=== PATIENT | female | born 1945 | race Caucasian/White ===

== ENCOUNTER 2017-10-07 10:16 | Day surgery (SDC) | payer OTHER ==
[2017-10-05 09:14] VITALS: BMI 31.6
[2017-10-07] MEDS ORDERED: MIDAZOLAM HCL 2 MG/2 ML SINGLE DOSE VIAL ONE ×2 (13:10→13:30)
[2017-10-07] MEDS ORDERED: DEXAMETHASONE SOD PHOSPHATE 4 MG/1 ML VIAL ONE (13:29)
[2017-10-07] MEDS ORDERED: ONDANSETRON 4 MG/2 ML VIAL ONE (13:29)
[2017-10-07] MEDS ORDERED: ceFAZolin SODIUM 1 GM VIAL ONE (13:29)
[2017-10-07] MEDS ORDERED: oxyCODONE HCL 5 MG TABLET PO PRN (14:21)
[2017-10-07] MEDS ORDERED: ONDANSETRON 4 MG/2 ML VIAL IVPUSH PRN (14:21)
[2017-10-07] MEDS ORDERED: LACTATED RINGERS SOLUTION 1,000 ML IV SCH (14:30)
--- NOTE | 2017-10-07 14:38 | OP ---
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
[2017-10-07] MEDS ORDERED: oxyCODONE HCL 5 MG TABLET ONE (15:49)
[2017-10-07 17:22] VITALS: BP 110/67; PULSE 70; TEMP 97.9
--- NOTE | 2017-10-07 22:53 | OP ---
DATE OF OPERATION: SURGEON: Juan Luis Boucher M.D. CARGO BRACER: Gonzales Boucher M.D. PREOPERATIVE DIAGNOSIS: Encysted hematoma right subfascial thigh, measurement approximately 5 cm. POSTOPERATIVE DIAGNOSIS: Encysted hematoma right subfascial thigh, measurement approximately 5 cm. Two lesions found. OPERATIVE PERFORMED: Excision biopsy of 2 small subfascial tumors. ANESTHESIA: Conscious sedation with spinal anesthesia. DESCRIPTION OF PROCEDURE: Patient was identified, brought in operating room. Right lower extremity was prepped and draped in the routine manner. Betadine scrub solution, wiped with alcohol, DuraPrep applied. Patient was placed in lateral decubitus position. The wound was opened through the old lateral incision. Fascia sharply from the underlying soft tissues because of previous surgery. Two firm hard lesions readily identified and wide resection of these was performed, with a cuff of tissue right around these to be viewed as excisional biopsies. The wounds were thoroughly lavaged. Hemostasis was achieved. Closure fascia 1 Vicryl, subcutaneous 1 and 2-0 Vicryl, skin 3-0 Monocryl with Steri-Strips. No complications. MD PAUL Torres/[id number] MTDD
--- NOTE | 2017-10-12 12:45 | PATH ---
Surgical Pathology Report Patient Name: THAO KIRBY [facility]. Rec. #: [id number] /Age/Gender: 1945 (Age: 71) / F Account: [id number] Location: [facility] AM[facility]UL[facility] Taken: 10/07/2017 Received: 10/07/2017 Reported: 10/12/2017 Physicians: Juan Luis Boucher M.D. Specimen(s) Received SUBFASCIAL TUMOR RIGHT HIP Clinical History Subfascial tumor right hip Encysted hematoma? Pyogenic granuloma? Fibroma? Final Diagnosis HIP, RIGHT, SUBFASCIAL TUMOR, EXCISION: FIBROADIPOSE TISSUE SHOWING FAT NECROSIS WITH DENSE FIBROSIS. Electronically Signed Candis Aquino M.D. Gross Description Received in formalin labeled "subfacial tumor right hip," are 2 trejo-yellow, irregular, unoriented portions of soft tissue measuring 3.0 x 1.8 x 0.9 cm and 4.5 x 2.5 x 1.1 cm. The smaller portion is inked blue and the larger portion is inked black. Sectioning reveals a 2.3 x 0.8 x 0.6 cm heterogeneous trejo-yellow, indurated, well-defined mass within the larger specimen. The mass focally abuts the radial margin. The remaining parenchyma displays smooth yellow adipose tissue. Hi Lo Driver sections are submitted in 6 cassettes as follows: 0-2-uokyzfmg and sequentially submitted mass; 5-uninvolved parenchyma from larger specimen; 6-patient intake representative smaller specimen. /10/11/2017 saudi10/11/2017
== END 2017-10-07 17:00 | disposition home or self-care (01) ==
LOC: FASU 10:16
PROVIDERS: ATTEND Orthopaedic Surgery Orthopaedic Surgery of the Spine
PROC: 0JBL0ZZ Excision of Right Upper Leg Subcutaneous Tissue and Fascia, Open Approach (ICD-10-PCS; principal; 2017-10-07 13:14)
DX: M79.81 Nontraumatic hematoma of soft tissue (principal)
CPT/HCPCS: 88305-TC; 94760